=== PATIENT | male | born 1995 | race Caucasian/White ===

== ENCOUNTER → 2016-07-28 | Day surgery (SDC) | payer OTHER ==
[~2016-07-28] VITALS: Ht 170.2 cm; Wt 46.2 kg
[~2016-07-28] MED LIST: ELEMENTAL IRON PO; IRON DEXTRAN IV ONE; NIFEDIPINE TOP; SODIUM CHLORIDE 0.9% IV ONE; diphenhydrAMINE 25 mg Capsule PO PRN
--- NOTE | 2016-07-28 12:45 | NUR ---
Medication change: Call relieved mauricio Kim (pharmacist) in pharmacy stating that she called the ordering MD and the order for Iron Dextran was changed to Venofer. The Pharmacist changed the order in the EMR. (no paper order)
[2016-07-28 14:58] VITALS: BP 114/69; PULSE 106; RESP 18; O2SAT 100
--- NOTE | 2016-07-28 16:16 | NUR ---
Pt concern: When entering room to flush IV Venofer that was completed mother reported that, pt had stated to her, he had seen some "spots" in his vision. When pt asked about it he stated "I can't really describe it". When asked if it was still occurring pt stated " I don't know". No report of SOB, itching, rash or any other issues. Unclear report of "symptoms". IV flushed and IV left in for now. Having pt stay on unit for an additional 15 minutes post infusion. Will continue to monitor.
--- NOTE | 2016-07-28 16:54 | NUR ---
Pt left the unit; Pt denies any further symptoms at discharge. Pt and mother instructed that if any symptoms occur or if his visual disturbance returns to either call Dr. Coates, consulting nurse or come to the ER. Further instructed pt and mother that if symptoms of SOB, Rash or hives to come to ER for evaluation. Both pt and mother understands and agrees with plan.
== END | disposition home or self-care (01) ==
LOC: MOCO 14:39
PROVIDERS: ATTEND Family Medicine
DX: D50.9 Iron deficiency anemia, unspecified (principal)
CPT/HCPCS: 96365; J1756

== ENCOUNTER 2016-08-02 08:24 | Day surgery (SDC) | payer OTHER ==
[~2016-08-02] VITALS: Ht 170.2 cm; Wt 46.0 kg
[~2016-08-02 08:24] MED LIST changes: -IRON DEXTRAN IV ONE; -SODIUM CHLORIDE 0.9% IV ONE; +Sodium Chloride LOK Flush 10 mL Syringe IV PRN; -diphenhydrAMINE 25 mg Capsule PO PRN; +fentaNYL-PF 50 mCg/mL 2 mL Inj IVPUSH PRN
[2016-08-02 08:49] VITALS: BP 114/74; PULSE 102; RESP 16; O2SAT 100
[2016-08-02] MEDS: 0.9% Sodium Chloride 1,000 ML IV SCH ×2 (08:57→10:23)
--- NOTE | 2016-08-02 09:42 | PCM.HPANE ---
Patient Data Surgeon Admitting Provider: Attending Provider:Adrián Gutierrez MD Primary Care Physician:Kike Coates MD Other Provider: Reason for Visit Weight Loss Ht/WT & BMI Height (Feet): 5 Height (Inches): 7 Weight (Kilograms): 46 Body Mass Index 15.00 Allergies Coded Allergies: No Known Drug Allergies (Verified Allergy, Unknown, 08/02/16) nickel (Unverified Allergy, Unknown, 07/28/16) Past Anesthesia History Anesthesia History: Denies:: Abnormal Airway, Anesthesia Reactions, Difficult Intubation, Fam Anesthesia Reaction, Fam Malignant Hypertherm, Malignant Hyperthermia Diabetes History Hx Diabetes?: No MRSA MRSA: No Medications Reported Medications [nifedipine cream] No Conflict Check1 TOP DIRECTED PRN For Pain 07/28/16 [elemental iron] No Conflict Check65 Mg PO DAILY 07/28/16 History History of ENT Problems?: No HEENT History: Denies:: Abnormal Airway Difficult Intubation Hearing Problem Denture Type: None Teeth Condition: Within Normal Limits Hx of Heart Problems?: No Cardiovascular History: Denies:: AICD Pacemaker Valvular Heart Disease Hx of Respiratory Problem?: No Respiratory History: Denies:: Asthma COPD Chest Surgery Cough Dyspnea Emphysema Hemoptysis Oxygen Administration Pneumonia Pulmonary Embolism Tuberculosis Use of C-PAP Machine Use of Inhalers / NEBS Hx Neurologic Problems?: No Neurological History: Denies:: CVA Hx of GI Problems?: Yes (weight loss of unclear etiology) Hx of Problems?: No HX of Peritoneal Dialysis: No Hx Musculoskeletal Problems?: No Psycho Social History: Denies:: Anxiety Hx Depression Hx Surgeries?: Yes (HYPOSPADIA, GUMS, ) Hx Any Other Health Problems?: No Hx Diabetes: No Hx Alcohol Use: NoHx Substance Use: Yes (MARIJUANA USE) Stop/Bang Treated for Sleep Apnea?: No Do You Have a CPAP Machine?: No S-Snoring: Do You Snore Loudly: No T-Tired: feel tired, fatigued: No O-Obsered: Observed not breath: No P-Blood Pressure: treated: No B- Body Mass Index > 35 kg/m2: No A- Age over 50: No G- Gender Male: Yes Risk Assessment Category Category 1A: Patient has history of documented sleep apnea, and HAS NOT received any narcotic, sedative or anesthesia administration during this stay. Category 1B: Patient has history of documented sleep apnea, and HAS received any narcotic , sedative or anesthesia administration during this stay Category 2: Patient has SUSPECTED Obstructive Sleep Apnea, and HAS received any narcotic , sedative or anesthesia administration during this stay. Category 3: Patient has SUSPECTED Obstructive Sleep Apnea and HAS NOT received narcotic, sedative or anesthesia administration during this stay. Category 4: Outpatient in Procedural Areas with known sleep apnea or who screen positive for High Risk via the STOP/BANG questionnaire. Exam Exam Vital Signs Vital Signs Date Time Temp Pulse Resp B/P Pulse Ox O2 Delivery O2 Flow Rate FiO2 08/02/16 08:49 102 16 114/74 100 Room Air General Appearance: Alert, Oriented X3 HEENT/AIRWAY: Other (mhd adequate) Lungs: Clear to Auscultation, Clear to Percussion Meds/Labs/Diagnostics Admission Meds Current Medications Sodium Chloride (Normal Saline) 1,000 ml @ 10 mls/hr Q24H IV Last administered on 08/02/16t 08:57; Start 08/02/16 at 06:00 Plan Impression Patient chart reviewed, patient interviewed and anesthestic plan with risks, benefits, and alternatives discussed, and informed consent obtained. ASA Physical Status: ASA3 Severe Disease Anesthetic Plan: MAC Bene/Risks/Altern/Consents: Yes HP Complete Prior to Induction: Yes Other I was called urgently to GI for "rescue". The pt. had received 8 mg IV versed and 175 mcg of IV fentanyl. He was quite sedated but would open his eyes to my name. His VS were wnl. The endoscopist had had challenges with EGD and the pt. was quite distressed so he requested my assistance with the colonoscopy. I was unable to talk with the pt or consent him directly myself. I reviewed the chart and discussed the case with the GI physician. Aditya William MD Aug 02, 2016 09:42
[2016-08-02] MEDS ORDERED: Lactated Ringer's 1,000 ML IV SCH (09:43)
[2016-08-02] MEDS ORDERED: Ondansetron 2 mg/mL 2 mL Inj IVPUSH PRN (09:45)
[2016-08-02] MEDS ORDERED: MetoCLOpramide 5 mg/mL 2 mL Inj IVPUSH PRN (09:45)
[2016-08-02 09:50] VITALS: BP 121/75; PULSE 83; RESP 16; O2SAT 100
--- NOTE | 2016-08-02 09:53 | PCM.ANEP1 ---
Post Anesthesia Phase 1 PACU Phase 1 Assessment Vital Signs Vital Signs Date Time Temp Pulse Resp B/P Pulse Ox O2 Delivery O2 Flow Rate FiO2 08/02/16 08:49 102 16 114/74 100 Room Air Anesthetic Administered: MAC Level of Alertness: Drowsy, not talking ALMAZAN's with Equal Strength: Yes Pain: No Nausea or Vomiting: No Oxygen Delivery: Simple Mask Lungs: Clear to Auscultation, Clear to Percussion Comments See anesth record for PACU VS. PACU VSS Aditya William MD Aug 02, 2016 09:53
[2016-08-02 10:00] VITALS: BP 129/97; PULSE 82; RESP 16; O2SAT 98
[2016-08-02 10:10] VITALS: BP 149/103; PULSE 87; RESP 16; O2SAT 98
[2016-08-02 10:20] VITALS: BP 85/53; PULSE 85; RESP 16; O2SAT 100
--- NOTE | 2016-08-02 10:24 | ENDO ---
[address] [address] ENDOSCOPY PROCEDURE PATIENT: REMY PRABHAKAR : 1995 MR#: [id number] ADMIT: 08/02/2016 JOB ID: [id number] DATE OF SERVICE: 08/02/2016 TYPE OF OPERATION: 1. Esophagogastroduodenoscopy with biopsy. 2. Colonoscopy with biopsy. PREOPERATIVE DIAGNOSIS: Weight loss. POSTOPERATIVE DIAGNOSES: 1. Normal upper endoscopy, status post biopsy. 2. Loss of architecture and vascularity with skip lesions with ulcerations and friable mucosa throughout the entire colon including within the terminal ileum which showed ulcers or friable mucosa concerning for Crohn disease status post biopsy. ANESTHESIA: Fentanyl 175 mcg, Versed 8 mg IV administered and the end converted to monitored anesthesia care for the colonoscopy rescue that was done given pt was crying and not fully sedating at our request during procedure.. COMPLICATIONS: None. BLOOD LOSS: Minimal. DESCRIPTION OF PROCEDURE: After risks and benefits was explained to the patient, informed consent was obtained. After anesthesia administered, upper endoscope was inserted into the mouth, intubated into the esophagus, stomach, second portion of duodenum, mucosa carefully examined. After procedure was done, the scope withdrawn and procedure terminated. Colonoscope was inserted per rectum to terminal ileum. Mucosa carefully examined. Prep of the patient was fair. After procedure was done, the scope withdrawn and procedure terminated. FINDINGS: Upon inspection of the esophagus, the esophagus was normal without masses, ulcers, lesions. Z-line located 40 cm from incisors. Upon entry to the stomach the stomach was normal without masses, ulcers, or lesions. Retroflexion normal duodenal bulb 1st and 2nd portion normal with biopsy taken at duodenum. Upon inspection of the anus, there was an anal fissure that was seen and a skin tag. Throughout the entire examination, there was loss of architecture vascularity and skip lesions throughout the entire colon with ulcerations and intubation GI showed also ulcerations and very friable mucosa status post biopsy. IMPRESSIONS: 1. Normal upper endoscopy, status post biopsy. 2. Loss of architecture vascularity and skip lesions throughout the entire colon with ulcerations and friable mucosa in the terminal ileum suspicious for Crohn disease status post biopsy. RECOMMENDATIONS: 1. Await pathology results. Start Pentasa 500 mg by mouth 4 times a day. 2. Prednisone 40 mg by mouth once a day. 3. Follow up in GI clinic in 1 month after the patient starts taking his medications. 4. all future gi procedures to be done with [facility]
[2016-08-02 10:30] VITALS: BP 101/63; PULSE 102; RESP 16; O2SAT 100
--- NOTE | 2016-08-04 11:11 | PATH ---
SURGICAL PATHOLOGY Attending Physician:Adrián Gutierrez MD CASE STATUS: Signed Out PATIENT NAME: REMY PRABHAKAR PID: [id number] : 1995 DATE COLLECTED:08/02/2016 18:08 SPECIMEN: 1: Duodenum, Biopsy 2: Colon, Biopsy 3: Ileum, Biopsy CLINICAL HISTORY: 1). DUODENUM BIOPSY 2). COLON ULCER 3). TERMINAL ILEUM BIOPSY FINAL DIAGNOSIS: 1.DUODENUM BIOPSY: DUODENAL MUCOSA WITH NO DIAGNOSTIC ALTERATIONS. Negative for inflammation, sprue, dysplasia, and malignancy. 2.COLON ULCER: FRAGMENTS OF COLONIC MUCOSA WITH CHRONIC ACTIVE COLITIS AND ULCERATION, SEE COMMENT. POSITIVE FOR RARE GRANULOMA. Negative for dysplasia and malignancy. 3.TERMINAL ILEUM BIOPSY: ULCERATED SMALL BOWEL MUCOSA. Negative for granulomas. Negative for dysplasia and malignancy. ICD10 code K52.9 NOTE: The colon biopsy specimen (specimen 2) is composed of multiple fragments of colonic mucosa that are variably involved by chronic colitis with mild to moderate activity. Several of the fragments are ulcerated. There is lamina propria hypercellularity, crypt abscesses, a few distorted crypts, and a single granuloma. No parasites are identified. The ileal mucosa shows similar inflammatory changes, but no granulomas. The differential diagnosis of these histologic changes includes infection, inflammatory bowel disease (Crohn' s), and medication toxicity. Correlation with clinical and endoscopic findings is necessary for a definitive diagnosis. GROSS DESCRIPTION: The specimen is received in three formalin filled containers labeled with the patient's name. 1). The specimen is sublabeled "duodenum" and consists of 2 portions of tissue which aggregate to 0.6 x 0.2 x 0.2 CM. The specimen is entirely submitted in cassette 1A. 2). The specimen is sublabeled "colon ulcer" and consists of 4 portions of tissue which aggregate to 0.4 x 0.3 x 0.2 CM. The specimen is entirely submitted in cassette 2A. 3). The specimen is sublabeled "terminal ileum" and consists of 4 portions of tissue which aggregate to 0.3 x 0.3 x 0.2 CM. The specimen is entirely submitted in cassette 3A. 08/02/2016 DAC MICRO DESCRIPTION: See diagnosis. ICD-9 CODES: CPT CODES: 1: 26244 2: 76757 3: 89964 Electronically Signed Out Desirae Foster MD [facility] [address], [place] [address] Technical component performed at [facility], [address], [place], [address]
== END 2016-08-02 23:59 | disposition home or self-care (01) ==
LOC: END 08:24
PROVIDERS: ATTEND Internal Medicine Gastroenterology
DX: K51.90 Ulcerative colitis, unspecified, without complications (principal); R64 Cachexia; Z68.1 Body mass index [BMI] 19.9 or less, adult
CPT/HCPCS: 43239; 45380; J7030